=== PATIENT | male | born 1955 | race Caucasian/White ===

== ENCOUNTER 2017-09-13 12:30 | Emergency (ER) | payer SELFPAY ==
[~2017-09-13] VITALS: Ht 177.8 cm; Wt 90.7 kg
[2017-09-13 12:35] VITALS: BP 113/75
--- NOTE | 2017-09-13 12:35 | ER Report ---
History and Physical Time Seen By MD: 12:34 HPI/ROS CHIEF COMPLAINT: Left hand injury HISTORY OF PRESENT ILLNESS: This is a 62 male who presents to the emergency department for a left hand injury. Patient states that he was using a drill about 20 minutes prior to arrival and his glove got caught in the drill bits and wrapped his fingers around the bit. She was able to remove the drill bit unwrapped the glove from the drill bit on the glove off and noticed that he had a deformity and several lacerations to the fingers. Patient's son was able to drive him into the emergency department. Patient arrives with an obvious deformity of the left ring finger and lacerations to the palmar side of the fingers, no thumb involvement. Patient denies any other symptoms at this time no fevers, aches, chills, nausea, vomiting, diarrhea. Bleeding is controlled at this time, and sensation appears to be intact. REVIEW OF SYSTEMS: Constitutional: No fever, no chills. Eyes: No discharge. ENT: No sore throat. Cardiovascular: No chest pain, no palpitations. Respiratory: No cough, no shortness of breath. Gastrointestinal: No abdominal pain, no vomiting. Genitourinary: No hematuria. Musculoskeletal: As above. Skin: As above. Neurological: No headache. Allergies: Coded Allergies: No Known Drug Allergies (Unverified , 09/13/17) Home Meds Active Scripts Ondansetron (ZOFRAN ODT) 4 Mg Tab.rapdis, 4 MG PO Q6H Y for NAUSEA/VOMITING, # 20 TAB.ARSALAN Prov:ANTHONY CRUMP [facility] 09/13/17 Hydrocodone Bit/Acetaminophen (HYDROCODON-ACETAMINOPHEN 5-325) 1 Each Tablet, 1 EACH PO Q4-6H Y for PAIN, #12 TAB Prov:ANTHOYN CRUMP [facility] [employer] 09/13/17 Amoxicillin/Pot Clav 875-125 Mg Tab (AUGMENTIN 875-125 TABLET) 1 Each Tablet, 1 TAB PO Q12H, #14 TAB Prov:ANTHONY CRUMP RO[address] [employer] 09/13/17 Past Medical/Surgical History Patient has a past medical and surgical history of hip replacement, Reviewed Nurses Notes: Yes Constitutional Vital Sign - Last 24 Hours 09/13/17 09/13/17 09/13/17 09/13/17 12:34 12:35 13:30 14:00 Temp 95.6 Pulse 78 66 Resp 18 B/P (MAP) 113/75 (88) 113/75 Pulse Ox 91 92 90 O2 Delivery Room Air 09/13/17 09/13/17 09/13/17 09/13/17 14:20 14:35 14:50 15:05 Pulse 67 62 64 Pulse Ox 93 94 95 96 Physical Exam General Appearance: The patient is alert, has no immediate need for airway protection and no signs of toxicity, pale and mildly anxious and sweating. Eyes: Pupils equal and round no pallor or injection. ENT, Mouth: Mucous membranes are moist. Respiratory: There are no retractions, lungs are clear to auscultation. Cardiovascular: Regular rate and rhythm, no murmurs, clicks or rubs. Gastrointestinal: Abdomen is soft and non tender, no masses, bowel sounds normal. Neurological: Alert and oriented 4. Moving all extremities. Following all commands. No focal neuro deficits. Skin: Lacerations to the palmar side of the left index, middle, ring and little fingers. Open dislocation of left ring finger at the PIP, tendon visible, unable to extend, decreased flexion. All other fingers are able to extend and flex. Examination of the Left hand reveals and obvious acute deformity. The patient is able to give a thumbs up sign, is able to make an okay sign, and is able to AB duct the fingers. Sensation is intact over the dorsal 1st web space, the volar aspect of the 2nd finger, and the volar aspect of the 5th finger. Capillary refill is brisk. Bleeding is controlled. Musculoskeletal: Neck is supple non tender. Extremities are nontender, nonswollen and have full range of motion. DIFFERENTIAL DIAGNOSIS: After history and physical exam differential diagnosis was considered for fracture, contusion, lacerations, dislocation, degloving, amputation. Medical Decision Making Data Points Result Diagram: 09/13/17 1330 09/13/17 1330 Laboratory Hematology Test 09/13/17 13:30 Red Blood Count 5.04 M/uL (4.00-5.60) Mean Corpuscular Volume 96.5 fL (80.0-96.0) Mean Corpuscular Hemoglobin 33.0 pg (26.0-33.0) Mean Corpuscular Hemoglobin Concent 34.2 g/dL (32.0-36.0) Red Cell Distribution Width 13.6 % (11.5-14.5) Mean Platelet Volume 6.9 fL (7.2-11.1) Neutrophils (%) (Auto) 51.6 % (39.4-72.5) Lymphocytes (%) (Auto) 37.0 % (17.6-49.6) Monocytes (%) (Auto) 8.2 % (4.1-12.4) Eosinophils (%) (Auto) 2.1 % (0.4-6.7) Basophils (%) (Auto) 1.1 % (0.3-1.4) Nucleated RBC Relative Count (auto) 0.2 /100WBC Neutrophils # (Auto) 2.9 K/uL (2.0-7.4) Lymphocytes # (Auto) 2.1 K/uL (1.3-3.6) Monocytes # (Auto) 0.5 K/uL (0.3-1.0) Eosinophils # (Auto) 0.1 K/uL (0.0-0.5) Basophils # (Auto) 0.1 K/uL (0.0-0.1) Nucleated RBC Absolute Count (auto) 0.01 K/uL Sodium Level 138 mmol/L (137-145) Potassium Level 4.1 mmol/L (3.5-5.0) Chloride Level 104 mmol/L (98-107) Carbon Dioxide Level 23 mmol/L (22-30) Blood Urea Nitrogen 14 mg/dl (9-21) Creatinine 0.90 mg/dl (0.66-1.25) Glomerular Filtration Rate Calc > 60.0 Random Glucose 112 mg/dl (75-110) Calcium Level 9.4 mg/dl (8.4-10.2) Total Bilirubin 0.5 mg/dl (0.2-1.3) Aspartate Amino Transf (AST/SGOT) 34 U/L (0-35) Alanine Aminotransferase (ALT/SGPT) 62 U/L (0-56) Alkaline Phosphatase 72 U/L (0-126) Total Protein 7.8 gm/dl (6.3-8.2) Albumin 4.6 g/dl (3.5-5.0) Chemistry Test 09/13/17 13:30 White Blood Count 5.6 k/uL (4.5-11.0) Red Blood Count 5.04 M/uL (4.00-5.60) Hemoglobin 16.6 g/dL (14.0-18.0) Hematocrit 48.6 % (42.0-52.0) Mean Corpuscular Volume 96.5 fL (80.0-96.0) Mean Corpuscular Hemoglobin 33.0 pg (26.0-33.0) Mean Corpuscular Hemoglobin Concent 34.2 g/dL (32.0-36.0) Red Cell Distribution Width 13.6 % (11.5-14.5) Platelet Count 294 K/uL (150-450) Mean Platelet Volume 6.9 fL (7.2-11.1) Neutrophils (%) (Auto) 51.6 % (39.4-72.5) Lymphocytes (%) (Auto) 37.0 % (17.6-49.6) Monocytes (%) (Auto) 8.2 % (4.1-12.4) Eosinophils (%) (Auto) 2.1 % (0.4-6.7) Basophils (%) (Auto) 1.1 % (0.3-1.4) Nucleated RBC Relative Count (auto) 0.2 /100WBC Neutrophils # (Auto) 2.9 K/uL (2.0-7.4) Lymphocytes # (Auto) 2.1 K/uL (1.3-3.6) Monocytes # (Auto) 0.5 K/uL (0.3-1.0) Eosinophils # (Auto) 0.1 K/uL (0.0-0.5) Basophils # (Auto) 0.1 K/uL (0.0-0.1) Nucleated RBC Absolute Count (auto) 0.01 K/uL Glomerular Filtration Rate Calc > 60.0 Calcium Level 9.4 mg/dl (8.4-10.2) Total Bilirubin 0.5 mg/dl (0.2-1.3) Aspartate Amino Transf (AST/SGOT) 34 U/L (0-35) Alanine Aminotransferase (ALT/SGPT) 62 U/L (0-56) Alkaline Phosphatase 72 U/L (0-126) Total Protein 7.8 gm/dl (6.3-8.2) Albumin 4.6 g/dl (3.5-5.0) EKG/Imaging EKG Interpretation 12 lead EKG: Time 1340. Rhythm: Normal sinus rhythm, 67 bpm. Right bundle-branch block [place]: normal QRS: normal ST segments: No ST elevation or depression Imaging FACILITY: PATIENT NAME: Jaime Sierra : 1955 MR: [id number] V: [id number] EXAM DATE: ORDERING PHYSICIAN: ANTHONY CRUMP TECHNOLOGIST: Location: [facility] Patient: Jaime Sierra : 1955 Visit/Account:[id number] Date of Sevice: 09/13/2017 Exam type: HAND COMPLETE LEFT History: Left hand trauma, drillbit accident Comparison: None. Findings: Thereis a nondisplaced fracture to the distal tuft of the distal phalanx of the left fifth finger. There is dislocation of the middle phalanx with respect to the proximal phalanx of the left fourth finger. There is volar and lateral displacement of the base of the middle phalanx of the left fourth finger with respect to the proximal phalanx. Ulnar deviation at the PIP joint. There appears to be an old postsurgical deformity of the navicular bone. IMPRESSION: 1. Dislocation at the PIP joint of the left fourth finger as detailed above Nonspecific fracture to the distal tuft of the distal phalanx of the left fifth finger Report Dictated By: Lyssa Ladd MD at 09/13/2017 1:29 PM Report E-Signed By: Lyssa Ladd MD at 09/13/2017 1:34 PM DASIAN:JUNIOR ED Course/Re-evaluation Clinical Indication for ER IV: IV Access ED Course The patient was admitted to room. A history and physical were obtained. Differential diagnoses were considered. An IV was started. A CBC, CMP were unremarkable. A hand x-ray was obtained showing a open dislocation of the left ring finger at the PIP joint with extensor tendon damage. Lacerations to the palmar surface of the small finger at the DIP joint, PIP joint of the middle and index finger. A tuft fracture to the distal phalanx of the left small finger. Given 1 g of IV Ancef. I did try to reduce the joint, as did Dr. Platt , both of us were unable to reduce it and keep the finger in place. I did discuss the case with Dr. Bello as noted below he did come in for evaluation of the patient. He was able to reduce the finger and said he would see the patient in his office and operate on . I did loosely suture each of the wounds at the request of Dr. Bello. I also started the patient on Augmentin, he was also given a prescription for Hydrocodone and Zofran. The patient was instructed to call Dr. Bello's office tomorrow for follow-up and preoperative interview. An EKG was done showing normal sinus rhythm. All of these findings were reviewed with the patient, the patient had no other questions or concerns and was discharged home. 09/13/2017 1:35:47 pm I did speak with Dr. Bello regarding the patient's case. Dr. Bello will come in and evaluate the patient for possible surgical repair of the injury. Procedure: Laceration repair. Verbal consent was obtained from the patient. The left index finger was 1.5cm laceration on the palmar side at the DIP, left middle finger was 1.5cm laceration at the palmar side of the PIP, left ringer finger, palmar side 2 cm laceration, open dislocation, 1.5cm laceration to the palmar side of the small finger at the PIP, each digit was digitally blocked using 1% lidocaine and 0.5 % bupivacaine with epinephrine.. The wound was scrubbed, and thoroughly irrigated with saline and sure cleanse, draped and explored to its base with a gloved finger. There were deep structures involvement as well as tendon damage. The wounds were loosely repaired with 5-0 ethilon, 2 simple interrupted to the index finger, 2 simple interrupted to the left middle finger , 4 simple interrupted to the left ring finger, 3 simple interrupted to the left small finger. The wound repair was complex. The procedure was performed by myself. The hand was also dressed the appropriate fashion and splinted. Patient had good CMS following the procedure and splinting. Decision to Disposition Date: Sep 13, 2017 Decision to Disposition Time: 15:16 Depart Departure Latest Vital Signs Vital Signs Date Time Temp Pulse Resp B/P (MAP) Pulse Ox O2 Delivery O2 Flow Rate FiO2 09/13/17 15:05 64 96 09/13/17 12:35 95.6 18 113/75 Room Air Impression: Primary Impression: Open dislocation of left ring finger Additional Impressions: Laceration of left index finger Laceration of left middle finger Laceration of left little finger Closed fracture of tuft of distal phalanx of finger Condition: Improved Disposition: HOME OR SELF-CARE New Scripts Ondansetron (ZOFRAN ODT) 4 Mg Tab.rapdis 4 MG PO Q6H Y for NAUSEA/VOMITING, #20 TAB.ARSALAN Prov: ANTHONY CRUMP [facility] 09/13/17 Hydrocodone Bit/Acetaminophen (HYDROCODON-ACETAMINOPHEN 5-325) 1 Each Tablet 1 EACH PO Q4-6H Y for PAIN, #12 TAB Prov: ANTHONY CRUMP [facility] 09/13/17 Amoxicillin/Pot Clav 875-125 Mg Tab (AUGMENTIN 875-125 TABLET) 1 Each Tablet 1 TAB PO Q12H, #14 TAB Prov: ANTHONY CRUMP [facility]- 09/13/17 Departure Forms: ER Transition Record, Medications Reconciliation, Patient Portal Information Patient Instructions: Finger Dislocation (ED), Open Finger Fracture ([place]) Additional Instructions: Drink plenty of fluids. Get plenty of rest. Take the antibiotics as indicated. Follow up with Dr. Bello as scheduled for surgery, call his office tomorrow for preop information. Take the pain medications as indicated. May return to the ED for worsening symptoms. Problem Qualifiers Additional Impressions: Laceration of left index finger Encounter type: initial encounter Damage to nail status: without damage Foreign body presence: with foreign body Qualified Codes: S61.221A - Laceration with foreign body of left index finger without damage to nail, initial encounter Laceration of left middle finger Encounter type: initial encounter Damage to nail status: without damage Foreign body presence: with foreign body Qualified Codes: S61.223A - Laceration with foreign body of left middle finger without damage to nail, initial encounter Laceration of left little finger Encounter type: initial encounter Damage to nail status: without damage Foreign body presence: with foreign body Qualified Codes: S61.227A - Laceration with foreign body of left little finger without damage to nail, initial encounter ANTHONY CRMUP [facility] Sep 13, 2017 12:35
[2017-09-13] MEDS ORDERED: DIPHTH/TETANUS/ACEL. PERTUSSIS IM ONLY ONE (12:55)
[2017-09-13] MEDS ORDERED: ceFAZolin 1 GM VIAL IVP ONE (12:55)
[2017-09-13] MEDS ORDERED: NS(*) 0.9% 100 ML ADDVANT BAG 100 ML ONE (13:17)
[2017-09-13] MEDS ORDERED: ceFAZolin 1 GM VIAL ONE (13:23)
--- NOTE | 2017-09-13 13:37 | RADIOLOGY IMAGING REPORT ---
FACILITY: [facility] - [place] PATIENT NAME: Jaime Sierra : 1955 MR: [id number] V: [id number] EXAM DATE: ORDERING PHYSICIAN: ANTHONY CRUMP TECHNOLOGIST: Location: [facility] Patient: Jaime Sierra : 1955 Visit/Account:[id number] Date of Sevice: 09/13/2017 Exam type: HAND COMPLETE LEFT History: Left hand trauma, drillbit accident Comparison: None. Findings: Thereis a nondisplaced fracture to the distal tuft of the distal phalanx of the left fifth finger. T here is dislocation of the middle phalanx with respect to the proximal phalanx of the left fourth fin layo. There is volar and lateral displacement of the base of the middle phalanx of the left fourth fi nger with respect to the proximal phalanx. Ulnar deviation at the PIP joint. There appears to be an old postsurgical deformity of the navicular bone. IMPRESSION: 1. Dislocation at the PIP joint of the left fourth finger as detailed above Nonspecific fracture to the distal tuft of the distal phalanx of the left fifth finger Report Dictated By: Lyssa Ladd MD at 09/13/2017 1:29 PM Report E-Signed By: Lyssa Ladd MD at 09/13/2017 1:34 PM WSN:JUNIOR
[2017-09-13 13:48] LABS: PLATELET COUNT, AUTOMATED 294 K/uL (150-450)
--- NOTE | 2017-09-13 13:48 | EKG ---
[place] [facility] [place]IENT NAME: FERNANDO NERI : [id number] MR: [id number] V: [id number] EXAM DATE: ORDERING PHYSICIAN: ANTHONY CRUMP TECHNOLOGIST: RODY Blount Reason : PRE-OP Blood Pressure : / mmHG Vent. Rate : 067 BPM Atrial Rate : 067 BPM P-R Int : 184 ms QRS Dur : 114 ms QT Int : 402 ms P-R-T Axes : 028 -19 050 degrees QTc Int : 424 ms Normal sinus rhythm Right bundle branch block Abnormal ECG When compared with ECG of 23-JUN-2016 11:55, No significant change was found Confirmed by KENDRA SEWELL ([id number]) on 09/13/2017 2:18:42 PM Referred By: ER Confirmed By:KENDRA SEWELL
[2017-09-13] MEDS ORDERED: AMOX-559 PO (15:20)
[2017-09-13] MEDS ORDERED: ONDA4TAB PO (15:20)
[2017-09-13] MEDS ORDERED: HYDR-385 PO (15:20)
== END 2017-09-13 15:40 | disposition home or self-care (01) ==
LOC: ER 12:40 → OR 14:01 → ER 15:40
DX: S61.221A Laceration with foreign body of left index finger without damage to nail, initial encounter (principal); S61.223A Laceration with foreign body of left middle finger without damage to nail, initial encounter; S61.227A Laceration with foreign body of left little finger without damage to nail, initial encounter; S63.255A Unspecified dislocation of left ring finger, initial encounter; S62.667A Nondisplaced fracture of distal phalanx of left little finger, initial encounter for closed fracture; W29.8XXA Contact with other powered hand tools and household machinery, initial encounter
CPT/HCPCS: 12002; 26770; 73130; 85025; 90471; 90715; 93005; 96374; 99284; J0690; L3763; 82040; 82247; 82310; 82374; 82435; 82565; 82947; 84075; 84132; 84155; 84295; 84450; 84460; 84520